=== PATIENT | female | born 1975 | race Caucasian/White ===

== ENCOUNTER → 2017-09-11 | Outpatient (CLI) | payer OTHER | LOC: FIMAGING 13:24 | PROVIDERS: ATTEND Internal Medicine | DX: Z12.31 Encounter for screening mammogram for malignant neoplasm of breast (principal) | CPT/HCPCS: G0202 ==

== ENCOUNTER 2017-09-18 17:03 | Emergency (ER) | payer OTHER ==
[2017-09-18 17:13] VITALS: BP 111/76; PULSE 51; RESP 16; TEMP 97.5; O2SAT 99
--- NOTE | 2017-09-18 17:20 | EDPHY ---
H & P Stated Complaint: 09/15 attacked by dog/l wrist inj wants xray HPI/ROS: HPI CHIEF COMPLAINT: Left wrist pain HISTORY OF PRESENT ILLNESS: This patient very pleasant 42-year-old female otherwise healthy no significant medical history does have significant past medical history for migraine headaches she presents emergency room with left lateral wrist pain. Is located focal pain over the distal ulnar styloid region. She states that she got bit by a dog was through a very thick foot least coat. This was on September 15 or 3 days ago. She denies any other areas of injury. She has no pain with range of motion of the wrist. However she has focal tenderness to the lateral aspect of her distal left wrist. No significant erythema. No drainage. No fever. No decreased range of motion. She was seen at Ur[facility]. She did file a police report. Dogs in quarantine. Past Medical History: migraine headache Past Surgical History: Left shoulder surgery Social History: Denies daily use of drugs alcohol tobacco products Family History: Noncontributory. ROS REVIEW OF SYSTEMS: A comprehensive 10 point review of systems is otherwise negative aside from elements mentioned in the history of present illness. Exam Constitutional triage nursing summary reviewed, vital signs reviewed, awake/ alert. Eyes normal conjunctivae and sclera, EOMI, PERRLA. HENT normal inspection, atraumatic, moist mucus membranes, no epistaxis, neck supple/ no meningismus, no raccoon eyes. Respiratory clear to auscultation bilaterally, normal breath sounds, no respiratory distress, no wheezing. Cardiovascular rate normal, regular rhythm, no murmur, no edema, distal pulses normal. Gastrointestinal soft, non-tender, no rebound, no guarding, normal bowel sounds, no distension, no pulsatile mass. Genitourinary no CVA tenderness. Musculoskeletal left wrist: Mild tenderness palpation over the distal left wrist specifically lateral ulnar styloid region. Ecchymosis present. No significant swelling. No pus. No redness. No drainage. Full range of motion of the wrist. No evidence of septic joint. Neurovascular intact otherwise. no midline vertebral tenderness, full range of motion, no calf swelling, no tenderness of extremities, no meningismus, good pulses, neurovascularly intact. Skin pink, warm, & dry, no rash, skin atraumatic. Neurologic awake, alert and oriented x 3, AAOx3, moves all 4 extremities equally, motor intact, sensory intact, CN II-XII intact, normal cerebellar, normal vision, normal speech. Psychiatric normal mood/affect. Heme/Lymph/Immune no lymphadenopathy. Differential Diagnosis: Includes but is not limited to in a particular order, soft tissue injury, tendon injury, bony fracture, bony bruise. Medical Decision Making: Plan for this patient x-ray left wrist. Re-evaluation: Left wrist x-ray shows no acute fracture. Patient has been placed in a Velcro splint for comfort. Ibuprofen for pain control. Follow up with Orthopedics if continues to have pain. Return precautions given. She understands. Source: Patient - Personal History LMP (Females 10-55): 1-7 Days Ago Current Tetanus/Diphtheria Vaccine: Yes - Medical/Surgical History Hx Asthma: No Hx Chronic Respiratory Disease: No Hx Diabetes: No Hx Cardiac Disease: No Hx Renal Disease: No Hx Cirrhosis: No Hx Alcoholism: No Hx HIV/AIDS: No Hx Splenectomy or Spleen Trauma: No Other PMH: medical migraines. surgery left shoulder surgery x 2 - Social History Smoking Status: Former smoker Constitutional: Initial Vital Signs Temperature (C) 36.4 C 09/18/17 17:10 Heart Rate 51 L 09/18/17 17:10 Respiratory Rate 16 09/18/17 17:10 Blood Pressure 111/76 09/18/17 17:10 O2 Sat (%) 99 09/18/17 17:10 O2 Delivery Mode Room Air Allergies/Adverse Reactions: Penicillins Allergy (Verified 09/18/17 17:09) Home Medications: Medication Instructions Recorded AZITHROMYCIN 09/18/17 Ibuprofen [Motrin (*)] 800 mg PO Q6-8PRN #10 tab 09/18/17 Medical Decision Making - Diagnostics Imaging Results: Imaging Impressions Wrist X-Ray 09/18/17 17:14 Impression: Nothing acute identified. Departure - Departure Disposition: Home, Routine, Self-Care Clinical Impression: Contusion of wrist, left Qualifiers: Encounter type: initial encounter Qualified Code(s): S60.212A - Contusion of left wrist, initial encounter Condition: Good Instructions: Wrist Injury (ED) Additional Instructions: 1.Stay in a Velcro wrist splint for comfort. 2. Take ibuprofen for pain control. 3. Follow up with Orthopedics. 4. Return emergency room if worsening symptoms questions or concerns. Referrals: Stormy Christianson MD [Primary Care Provider] - As per Instructions Prescriptions: Ibuprofen [Motrin (*)] 800 mg PO Q6-8PRN #10 tab
== END 2017-09-18 18:04 | disposition home or self-care (01) ==
DX: S60.212A Contusion of left wrist, initial encounter (principal); Z87.891 Personal history of nicotine dependence; W54.0XXA Bitten by dog, initial encounter

== ENCOUNTER 2018-05-15 13:18 | Emergency (ER) | payer OTHER ==
[2018-05-15] MEDS ORDERED: METOCLOPRAMIDE 10 MG/2 ML VIAL IVP ONE (13:28)
[2018-05-15] MEDS ORDERED: NS 1,000 ML IV ONE (13:28)
[2018-05-15] MEDS ORDERED: DEXAMETHASONE 10 MG/ML VIAL IVP ONE (13:28)
--- NOTE | 2018-05-15 13:46 | EDPHY ---
H & P Stated Complaint: Typical migraine since this morning;assoc n/v,photophobia Time Seen by Provider: 05/15/18 13:27 HPI/ROS: CHIEF COMPLAINT: Migraine headache, vomiting HISTORY OF PRESENT ILLNESS: 43-year-old female with a history of migraine headaches presents with headache and vomiting. Onset a typical migraine headache at 6:15 a.m. The headache is throbbing and moderate, associated with multiple episodes of vomiting and photophobia. Imitrex without relief. Unable to tolerate oral fluids. REVIEW OF SYSTEMS: complete 10 point ROS negative except at noted in the HPI - Personal History LMP (Females 10-55): 1-7 Days Ago Current Tetanus Diphtheria and Acellular Pertussis (TDAP): Yes - Medical/Surgical History Hx Asthma: No Hx Chronic Respiratory Disease: No Hx Diabetes: No Hx Cardiac Disease: No Hx Renal Disease: No Hx Cirrhosis: No Hx Alcoholism: No Hx HIV/AIDS: No Hx Splenectomy or Spleen Trauma: No Other PMH: medical migraines. surgery left shoulder surgery x 2 - Social History Smoking Status: Former smoker - Physical Exam Exam: General Appearance: Alert, pleasant Eyes: Pupils equal and round, no conjunctival pallor ENT, Mouth: Mucous membranes moist Neck: Normal inspection Respiratory: Lungs are clear to auscultation Cardiovascular: Regular rate and rhythm Gastrointestinal: Abdomen is soft and nontender Neurological: Alert, oriented x3, cranial nerves II through XII intact, motor 5 /5, sensory intact to light touch, normal gait Skin: Warm and dry Extremities: Normal inspection Psychiatric: Mood and affect normal Constitutional: Initial Vital Signs Temperature (C) 36.7 C 05/15/18 13:21 Heart Rate 59 L 05/15/18 13:21 Respiratory Rate 16 05/15/18 13:21 Blood Pressure 102/72 05/15/18 13:21 O2 Sat (%) 98 05/15/18 13:21 O2 Delivery Mode Room Air Allergies/Adverse Reactions: caffeine Allergy (Intermediate, Verified 05/15/18 13:21) migraines Penicillins Allergy (Intermediate, Verified 05/15/18 13:21) Hives Home Medications: Medication Instructions Recorded SUMAtriptan [Imitrex 25 MG (*)] 25 mg PO Q2H 05/15/18 Medical Decision Making ED Course/Re-evaluation: This patient presents with a typical migraine headache. Reglan, Benadryl and Decadron IV given. 1445: Patient feels much better and wants to go home. Headache has almost completely resolved. Differential Diagnosis: Headache including but not limited to subarachnoid hemorrhage, migraine headache , tension headache and infectious causes such as meningitis, pharyngitis and sinusitis. - Data Points Medications Given: Discontinued Medications Dexamethasone (Decadron Injection) 10 mg IVP EDNOW ONE Stop: 05/15/18 13:29 Last Admin: 05/15/18 13:50 Dose: 10 mg Diphenhydramine HCl (Benadryl Injection) 25 mg IVP EDNOW ONE Stop: 05/15/18 13:29 Last Admin: 05/15/18 13:49 Dose: 25 mg Sodium Chloride (Ns) 1,000 mls @ 0 mls/hr IV ONCE ONE; Wide Open PRN Reason: Protocol Stop: 05/15/18 13:29 Last Admin: 05/15/18 13:51 Dose: 1,000 mls Metoclopramide HCl (Reglan Injection) 10 mg IVP EDNOW ONE Stop: 05/15/18 13:29 Last Admin: 05/15/18 13:50 Dose: 10 mg Departure - Departure Disposition: Home, Routine, Self-Care Clinical Impression: Migraine headache Qualifiers: Migraine type: without aura Status migrainosus presence: with status migrainosus Intractability: intractable Qualified Code(s): G43.011 - Migraine without aura, intractable, with status migrainosus Condition: Good Instructions: Migraine Headache (ED) Referrals: Stormy Christianson MD [Primary Care Provider] - As per Instructions
[2018-05-15 14:57] VITALS: BP 101/54
== END 2018-05-15 15:02 | disposition home or self-care (01) ==
DX: G43.011 Migraine without aura, intractable, with status migrainosus (principal); E86.9 Volume depletion, unspecified; Z87.891 Personal history of nicotine dependence
CPT/HCPCS: 96374; J1100; J1200; J2765

== ENCOUNTER → 2018-06-17 | Outpatient (CLI) | payer OTHER | LOC: FIMAGING 14:18 | PROVIDERS: ATTEND Internal Medicine | DX: N63.42 Unspecified lump in left breast, subareolar (principal); N63.11 Unspecified lump in the right breast, upper outer quadrant ==